=== PATIENT | female | born 1960 | race Caucasian/White ===

== ENCOUNTER 2022-05-03 21:35 | Emergency (ER) | payer OTHER ==
[2022-05-03] MEDS ORDERED: Acetaminophen/HYDROcodone 325-5 MG Tab PO ONE (21:50)
== END 2022-05-03 22:58 | disposition home or self-care (01) ==
LOC: JP.ED 21:35
DX: S93.402A Sprain of unspecified ligament of left ankle, initial encounter (principal); S90.32XA Contusion of left foot, initial encounter; Z88.1 Allergy status to other antibiotic agents; Z88.8 Allergy status to other drugs, medicaments and biological substances; Z79.82 Long term (current) use of aspirin; Z79.84 Long term (current) use of oral hypoglycemic drugs; Z79.899 Other long term (current) drug therapy; X50.1XXA Overexertion from prolonged static or awkward postures, initial encounter; Y93.02 Activity, running
CPT/HCPCS: 73610-26-LT; 73610-LT; 73630-26-LT; 73630-LT; 99282; 99283-25; A9270-GY